=== PATIENT | female | born 1960 | race African-American/Black ===

== ENCOUNTER 2016-06-12 06:48 | Day surgery (SDC) | payer OTHER ==
[~2016-06-12 06:48] MED LIST: ASPI-482 PO; ATOR20TA PO; CART1TAB5 PO; CEFAZOLIN 1GM IVPB FOR OMNI 50 ML IV PRN; CETI10TA22 PO; LEVO75TA5 PO; LOSA25TA4 PO; MULT-208 PO; VITA100016 PO
[2016-06-12] MEDS ORDERED: MORPHINE SULFATE 2 MG/ML DISP.SYRIN. IV PRN (07:00)
[2016-06-12] MEDS ORDERED: ONDANSETRON PF 4 MG/2 ML VIAL. IV PRN (07:00)
[2016-06-12] MEDS ORDERED: FENTANYL PF 100 MCG/2 ML VIAL. IV PRN (07:00)
[2016-06-12] MEDS ORDERED: IV RINGERS,LACTATED 1000ML 1,000 ML IV SCH (07:00)
[2016-06-12] MEDS ORDERED: HYDROMORPHONE 2 MG/ML VIAL. IV PRN (07:00)
[2016-06-12] MEDS ORDERED: METHYLENE BLUE 1% 1 ML VIAL. ONE (07:00)
[2016-06-12] MEDS ORDERED: PROCHLORPERAZINE 10 MG/2 ML VIAL. IV PRN (07:00)
[2016-06-12] MEDS ORDERED: LIDOCAINE 1% 1 ML SYRINGE. ID PRN (07:00)
[2016-06-12 07:31] LABS: BASO # 0.1 x10^3/uL (0.0-0.2); BASO % 1 % (0-3); EOS % 2 % (0-3); HEMATOCRIT 40.8 % (36.0-47.0); HEMOGLOBIN 13.1 g/dL (12.0-15.5); LYMPH # 2.6 x10^3/uL (1.0-4.8); LYMPH % 37 % (24-48); MEAN CORPUSCULAR HEMOGLOBIN 26 pg (25-35); MEAN CORPUSCULAR HGB CONC 32 g/dL (31-37); MEAN CORPUSCULAR VOLUME 82 fL (79-100); MONO % 9 % (0-9); NEUT % 52 % (31-73); PLATELET COUNT 273 x10^3/uL (140-400); RED BLOOD COUNT 4.98 x10^6/uL (3.50-5.40); RED CELL DISTRIBUTION WIDTH 14.1 % (11.5-14.5)
[2016-06-12 07:37] LABS: INR 1.1 (0.8-1.1); PROTHROMBIN TIME PATIENT 13.3 SEC (11.7-14.0)
[2016-06-12 07:40] LABS: CALCIUM 9.4 mg/dL (8.5-10.1); GFR 69.1; POTASSIUM 3.7 mmol/L (3.5-5.1)
[2016-06-12 07:45] LABS: ALBUMIN 3.7 g/dL (3.4-5.0); ALBUMIN/GLOBULIN RATIO 0.8 (1.0-1.7); TOTAL BILIRUBIN 0.3 mg/dL (0.2-1.0); TOTAL PROTEIN 8.3 g/dL (6.4-8.2)
[2016-06-12] MEDS ORDERED: ONDANSETRON PF 4 MG/2 ML VIAL. ONE (08:26)
[2016-06-12] MEDS ORDERED: MIDAZOLAM HCL 2 MG/2 ML VIAL. ONE (08:26)
[2016-06-12] MEDS ORDERED: FENTANYL PF 100 MCG/2 ML VIAL. ONE (08:26)
[2016-06-12] MEDS ORDERED: PROPOFOL 20 ML IV ONE (08:26)
[2016-06-12] MEDS ORDERED: DESFLURANE 61 TO 120 MINUTES IH ONE (08:26)
[2016-06-12] MEDS ORDERED: LIDOCAINE 2% 100 MG/5 ML DISP.SYRIN. ONE (08:27)
[2016-06-12] MEDS ORDERED: DEXAMETHASONE SOD PHOS 20 MG/5 ML VIAL. ONE (08:27)
[2016-06-12] MEDS ORDERED: KETOROLAC 60 MG/2 ML SYRINGE FOR OR. ONE (08:27)
--- NOTE | 2016-06-12 08:35 | PDOC ---
SURGICAL PROGRESS NOTE Subjective Surgeon.......................................... Lexx Preoperative diagnosis......................Right breast masses Post operative diagnosis...................Right breast masses Anesthesia...................................... General Procedure....................................... Excision right breast masses via needle localization Blood loss....................................... 5cc's Drains............................................. None Fluids.............................................. See anesthesia's sheet Condition,........................................ Satisfactory Vital Signs Vital Signs Date Time Temp Pulse Resp B/P Pulse Ox O2 Delivery O2 Flow Rate FiO2 06/12/16 07:16 97.3 73 18 156/77 97 Room Air 97.3 Labs Laboratory Tests Test 06/12/16 07:20 White Blood Count 7.0x10^3/uL (4.0-11.0) Red Blood Count 4.98x10^6/uL (3.50-5.40) Hemoglobin 13.1g/dL (12.0-15.5) Hematocrit 40.8% (36.0-47.0) Mean Corpuscular Volume 82fL (79-100) Mean Corpuscular Hemoglobin 26pg (25-35) Mean Corpuscular Hemoglobin Concent 32g/dL (31-37) Red Cell Distribution Width 14.1% (11.5-14.5) Platelet Count 273x10^3/uL (140-400) Neutrophils (%) (Auto) 52% (31-73) Lymphocytes (%) (Auto) 37% (24-48) Monocytes (%) (Auto) 9% (0-9) Eosinophils (%) (Auto) 2% (0-3) Basophils (%) (Auto) 1% (0-3) Neutrophils # (Auto) 3.6x10^3uL (1.8-7.7) Lymphocytes # (Auto) 2.6x10^3/uL (1.0-4.8) Monocytes # (Auto) 0.6x10^3/uL (0.0-1.1) Eosinophils # (Auto) 0.1x10^3/uL (0.0-0.7) Basophils # (Auto) 0.1x10^3/uL (0.0-0.2) Prothrombin Time 13.3SEC (11.7-14.0) Prothromb Time International Ratio 1.1 (0.8-1.1) Activated Partial Thromboplast Time 27SEC (24-38) Sodium Level 144mmol/L (136-145) Potassium Level 3.7mmol/L (3.5-5.1) Chloride Level 107mmol/L (98-107) Carbon Dioxide Level 24mmol/L (21-32) Anion Gap 13 (6-14) Blood Urea Nitrogen 18mg/dL (7-20) Creatinine 1.0mg/dL (0.6-1.0) Estimated GFR (Cockcroft-Gault) 69.1 BUN/Creatinine Ratio 18 (6-20) Glucose Level 97mg/dL (70-99) Calcium Level 9.4mg/dL (8.5-10.1) Total Bilirubin 0.3mg/dL (0.2-1.0) Aspartate Amino Transf (AST/SGOT) 19U/L (15-37) Alanine Aminotransferase (ALT/SGPT) 28U/L (14-59) Alkaline Phosphatase 77U/L (46-116) Total Protein 8.3g/dL (6.4-8.2) Albumin 3.7g/dL (3.4-5.0) Albumin/Globulin Ratio 0.8 (1.0-1.7) Laboratory Tests Test 06/12/16 07:20 White Blood Count 7.0x10^3/uL (4.0-11.0) Red Blood Count 4.98x10^6/uL (3.50-5.40) Hemoglobin 13.1g/dL (12.0-15.5) Hematocrit 40.8% (36.0-47.0) Mean Corpuscular Volume 82fL (79-100) Mean Corpuscular Hemoglobin 26pg (25-35) Mean Corpuscular Hemoglobin Concent 32g/dL (31-37) Red Cell Distribution Width 14.1% (11.5-14.5) Platelet Count 273x10^3/uL (140-400) Neutrophils (%) (Auto) 52% (31-73) Lymphocytes (%) (Auto) 37% (24-48) Monocytes (%) (Auto) 9% (0-9) Eosinophils (%) (Auto) 2% (0-3) Basophils (%) (Auto) 1% (0-3) Neutrophils # (Auto) 3.6x10^3uL (1.8-7.7) Lymphocytes # (Auto) 2.6x10^3/uL (1.0-4.8) Monocytes # (Auto) 0.6x10^3/uL (0.0-1.1) Eosinophils # (Auto) 0.1x10^3/uL (0.0-0.7) Basophils # (Auto) 0.1x10^3/uL (0.0-0.2) Prothrombin Time 13.3SEC (11.7-14.0) Prothromb Time International Ratio 1.1 (0.8-1.1) Activated Partial Thromboplast Time 27SEC (24-38) Sodium Level 144mmol/L (136-145) Potassium Level 3.7mmol/L (3.5-5.1) Chloride Level 107mmol/L (98-107) Carbon Dioxide Level 24mmol/L (21-32) Anion Gap 13 (6-14) Blood Urea Nitrogen 18mg/dL (7-20) Creatinine 1.0mg/dL (0.6-1.0) Estimated GFR (Cockcroft-Gault) 69.1 BUN/Creatinine Ratio 18 (6-20) Glucose Level 97mg/dL (70-99) Calcium Level 9.4mg/dL (8.5-10.1) Total Bilirubin 0.3mg/dL (0.2-1.0) Aspartate Amino Transf (AST/SGOT) 19U/L (15-37) Alanine Aminotransferase (ALT/SGPT) 28U/L (14-59) Alkaline Phosphatase 77U/L (46-116) Total Protein 8.3g/dL (6.4-8.2) Albumin 3.7g/dL (3.4-5.0) Albumin/Globulin Ratio 0.8 (1.0-1.7) WAQAS SOMERS MD Jun 12, 2016 08:34
--- NOTE | 2016-06-12 09:02 | PDOC ---
SURGICAL PROGRESS NOTE Subjective no change to most recent History and Physical Vital Signs Vital Signs Date Time Temp Pulse Resp B/P Pulse Ox O2 Delivery O2 Flow Rate FiO2 06/12/16 07:16 97.3 73 18 156/77 97 Room Air 97.3 Labs Laboratory Tests Test 06/12/16 07:20 White Blood Count 7.0x10^3/uL (4.0-11.0) Red Blood Count 4.98x10^6/uL (3.50-5.40) Hemoglobin 13.1g/dL (12.0-15.5) Hematocrit 40.8% (36.0-47.0) Mean Corpuscular Volume 82fL (79-100) Mean Corpuscular Hemoglobin 26pg (25-35) Mean Corpuscular Hemoglobin Concent 32g/dL (31-37) Red Cell Distribution Width 14.1% (11.5-14.5) Platelet Count 273x10^3/uL (140-400) Neutrophils (%) (Auto) 52% (31-73) Lymphocytes (%) (Auto) 37% (24-48) Monocytes (%) (Auto) 9% (0-9) Eosinophils (%) (Auto) 2% (0-3) Basophils (%) (Auto) 1% (0-3) Neutrophils # (Auto) 3.6x10^3uL (1.8-7.7) Lymphocytes # (Auto) 2.6x10^3/uL (1.0-4.8) Monocytes # (Auto) 0.6x10^3/uL (0.0-1.1) Eosinophils # (Auto) 0.1x10^3/uL (0.0-0.7) Basophils # (Auto) 0.1x10^3/uL (0.0-0.2) Prothrombin Time 13.3SEC (11.7-14.0) Prothromb Time International Ratio 1.1 (0.8-1.1) Activated Partial Thromboplast Time 27SEC (24-38) Sodium Level 144mmol/L (136-145) Potassium Level 3.7mmol/L (3.5-5.1) Chloride Level 107mmol/L (98-107) Carbon Dioxide Level 24mmol/L (21-32) Anion Gap 13 (6-14) Blood Urea Nitrogen 18mg/dL (7-20) Creatinine 1.0mg/dL (0.6-1.0) Estimated GFR (Cockcroft-Gault) 69.1 BUN/Creatinine Ratio 18 (6-20) Glucose Level 97mg/dL (70-99) Calcium Level 9.4mg/dL (8.5-10.1) Total Bilirubin 0.3mg/dL (0.2-1.0) Aspartate Amino Transf (AST/SGOT) 19U/L (15-37) Alanine Aminotransferase (ALT/SGPT) 28U/L (14-59) Alkaline Phosphatase 77U/L (46-116) Total Protein 8.3g/dL (6.4-8.2) Albumin 3.7g/dL (3.4-5.0) Albumin/Globulin Ratio 0.8 (1.0-1.7) Laboratory Tests Test 06/12/16 07:20 White Blood Count 7.0x10^3/uL (4.0-11.0) Red Blood Count 4.98x10^6/uL (3.50-5.40) Hemoglobin 13.1g/dL (12.0-15.5) Hematocrit 40.8% (36.0-47.0) Mean Corpuscular Volume 82fL (79-100) Mean Corpuscular Hemoglobin 26pg (25-35) Mean Corpuscular Hemoglobin Concent 32g/dL (31-37) Red Cell Distribution Width 14.1% (11.5-14.5) Platelet Count 273x10^3/uL (140-400) Neutrophils (%) (Auto) 52% (31-73) Lymphocytes (%) (Auto) 37% (24-48) Monocytes (%) (Auto) 9% (0-9) Eosinophils (%) (Auto) 2% (0-3) Basophils (%) (Auto) 1% (0-3) Neutrophils # (Auto) 3.6x10^3uL (1.8-7.7) Lymphocytes # (Auto) 2.6x10^3/uL (1.0-4.8) Monocytes # (Auto) 0.6x10^3/uL (0.0-1.1) Eosinophils # (Auto) 0.1x10^3/uL (0.0-0.7) Basophils # (Auto) 0.1x10^3/uL (0.0-0.2) Prothrombin Time 13.3SEC (11.7-14.0) Prothromb Time International Ratio 1.1 (0.8-1.1) Activated Partial Thromboplast Time 27SEC (24-38) Sodium Level 144mmol/L (136-145) Potassium Level 3.7mmol/L (3.5-5.1) Chloride Level 107mmol/L (98-107) Carbon Dioxide Level 24mmol/L (21-32) Anion Gap 13 (6-14) Blood Urea Nitrogen 18mg/dL (7-20) Creatinine 1.0mg/dL (0.6-1.0) Estimated GFR (Cockcroft-Gault) 69.1 BUN/Creatinine Ratio 18 (6-20) Glucose Level 97mg/dL (70-99) Calcium Level 9.4mg/dL (8.5-10.1) Total Bilirubin 0.3mg/dL (0.2-1.0) Aspartate Amino Transf (AST/SGOT) 19U/L (15-37) Alanine Aminotransferase (ALT/SGPT) 28U/L (14-59) Alkaline Phosphatase 77U/L (46-116) Total Protein 8.3g/dL (6.4-8.2) Albumin 3.7g/dL (3.4-5.0) Albumin/Globulin Ratio 0.8 (1.0-1.7) WAQAS SOMERS MD Jun 12, 2016 09:02
--- NOTE | 2016-06-12 09:37 | HP ---
ADMIT DATE: 06/12/2016 HISTORY OF PRESENT ILLNESS: The patient reports a history of a lump in her right breast for the past month. It has been constant and is not tender and has not been associated with any swelling, redness or recent injury. The patient was seen for imaging at [facility] which showed multiple small densities at the 10 and 11 o'clock positions. PAST MEDICAL HISTORY: Hypertension, for which she takes medication on a regular basis and a history of hyperthyroidism, for which she had an iodine ablation treatment. MEDICATIONS: She takes Synthroid on a regular basis. ALLERGIES: This patient has allergies to SULFA medications. SOCIAL HISTORY: She does not drink, smoke or use recreational drugs. FAMILY HISTORY: Breast cancer in her 24-year-old sister who . PHYSICAL EXAMINATION: HEAD AND NECK: Grossly normal. HEART: Regular rate and rhythm. No murmurs auscultated. LUNGS: Clear to auscultation bilaterally. BREASTS: Right breast with a small density at the 6 o'clock position. ASSESSMENT AND PLAN: We discussed options of needle core biopsy with the patient. She declined that option at this time. The patient would like to undergo a lumpectomy procedure. The risks and complications of which were discussed with the patient. The patient is not currently on any anticoagulant medications at this time. WAQAS SOMERS MD DR: OSMIN/ally JOB#: [id number] / [id number]
[2016-06-12] MEDS ORDERED: VASOPRESSIN 20 UNIT/ML VIAL. ONE (09:49)
--- NOTE | 2016-06-12 10:25 | RAD ---
Right digital specimen mammogram, 06/12/2016: History: Suspicious cluster of nodules A single mammogram of a surgical specimen from the patient's right breast was obtained. The specimen contains both of the retention wires which were utilized in localizing the cluster of nodules. No discrete mass or nodule is identified. The nodules were not mammographically visible on the postlocalization images and therefore were not expected to be visible on the specimen study.
[2016-06-12] MEDS: FENTANYL PF 100 MCG/2 ML VIAL. IV PRN ×2 (11:14→11:26)
[2016-06-12 11:53] VITALS: BP 118/69
[2016-06-12] MEDS ORDERED: HYDROCODONE/APAP 5/325MG TABLET. PO PRN (12:15)
--- NOTE | 2016-06-12 18:32 | OP ---
DATE OF SURGERY: SURGEON: Felix Somers MD PREOPERATIVE DIAGNOSIS: Three tumors of the right breast. POSTOPERATIVE DIAGNOSIS: Three tumors of the right breast. ANESTHESIA: General. PROCEDURE: Excision of three tumors, right breast. TECHNIQUE: Under general anesthesia, the patient was properly prepped and draped in a routine fashion. She had needle localization and actually had 2 wires, one going through the subcutaneous superficial lesion and going down through the deep lesion. The other wire went through a different lesion which was close to, but not at the other wire. The wires were only probably less than an inch. The superficial lesion could not be removed as we did not want to dislodge things and as such all three were removed. The technique was under general anesthesia. As stated before, the patient was properly prepped and draped in routine fashion. We made an incision encompassing the insertion sites of both guidewires and about ____ inches in length and probably a inch or more in width. We carried these around the guidewires into the subcutaneous and then took all the tissue around both guidewires down. We used cautery, sharp dissection with Metzenbaum scissors, but mostly cautery and just went completely around both of the guidewires down to and include the methylene blue. I had spoken to the radiologist and the methylene blue was passed the lesion, so we knew we got the lesions. We took a wide ____ tissue, probably 2 inches or more in diameter around the wires. This was sent to x-ray and the radiologist did not think ____ to do sono or do mammogram on these tissues. As he thought the wires went through the lesions, the procedure was terminated. The deeper breast tissue was approximated with interrupted 3-0 Vicryl. The more superficial was closed with 4-0 Vicryl and the skin was closed using a subcuticular 5-0 Vicryl. The sterile dressing was applied and the procedure was terminated. The blood loss was probably less than 5 mL. No drains were used. Fluids given can be obtained from the anesthesia sheet. Condition of the patient is satisfactory as she has returned to the recovery room. FELIX SOMERS MD DR: OSMIN/ally JOB#: [id number] / [id number]
--- NOTE | 2016-06-13 16:48 | PATHOLOGY ---
PATHOLOGY REPORT * * * * * * * * FINAL DIAGNOSIS: Skin and breast tissue, right breast mass excision: - Fat necrosis, multifocal, with focal chronic inflammation. - Focal stromal fibrosis and mild duct ectasia. COMMENT: There is no evidence of malignancy. (JPM:; d/t: 06/13/16) REPORT ELECTRONICALLY SIGNED BY: Erik De Dios M.D. DATE/TIME: 06/13/2016 16:47 * * * * * * * * GROSS PATHOLOGY: The specimen is received in formalin labeled "Shanice Alcocer, right breast mass". Received is a 42 g unoriented lumpectomy specimen with attached light brown, wrinkled skin measuring 10.3 x 7.1 x 2.0 cm in greatest dimensions. There are two localization wires present which enter through the epidermal surface. The specimen is inked black. Sectioning reveals bright yellow, lobulated cut surfaces throughout with several areas of residual blue dye present. No grossly identifiable nodules or lesions are present. Alternating sections are submitted in cassettes A1 through A19. The cold ischemic time is 15 minutes. The total formalin fixation time is 9 hours and 23 minutes. (CAA; 06/12/2016) INITIAL CPT CODE(S): A; 04963 Professional services performed by [facility] [address] Technical services performed by [facility] at [address] [place] [address], [facility] [address] [address]. SPECIMEN(S) RECEIVED: A.Right breast mass CLINICAL HISTORY: Right breast mass PATIENT: SHANICE ALCOCER /AGE: 1104/01/1960 (Age: 56) PATIENT #: [id number] ALT CASE #: SPECIMEN COLLECTION DATE: 06/12/2016 SPECIMEN RECEIVED DATE: 06/12/2016 [facility] - [address] [place] [address] - PHONE: [phone] * * * END OF REPORT * * *
--- NOTE | 2016-07-01 09:17 | RAD ---
Ultrasound-guided right breast needle localization, 06/12/2016: History: Suspicious nodule An outside ultrasound study demonstrated a cluster of the least 3 suspicious hypoechoic nodules at the 10-11 o'clock location in the right breast. This cluster extends over an area of approximately 2 cm. We decided to place 2 localization wires to bracket this process. Under local anesthesia, aseptic conditions and sonographic guidance a a needle was placed in the most superior of these nodules via a lateral approach. This is also the most superficial of these nodules. A small amount methylene blue was injected just medial to the nodule as requested. A modified Kopans retention wire was then passed to the needle and the needle removed. We then targeted the more inferior/posterior of these nodules vis the same lateral approach. Methylene blue was again injected just medial to this nodule and a modified Kopans retention wire left in place extending through the nodule. Two view right mammograms were then obtained to document the position of the wires. The localized nodule cluster does not correspond to an area of increased density noted posterolaterally in the right breast on the outside mammograms. Mammographic follow-up is suggested. The results of this procedure were reviewed with Dr. Hallman at 9:00 AM on 2016. EDUARDO
== END 2016-06-12 12:43 | disposition home or self-care (01) ==
LOC: SURG 06:48
PROVIDERS: ATTEND Specialist
DX: D49.3 Neoplasm of unspecified behavior of breast (principal); I10 Essential (primary) hypertension; E78.5 Hyperlipidemia, unspecified; M19.90 Unspecified osteoarthritis, unspecified site; E78.00 Pure hypercholesterolemia, unspecified; G45.9 Transient cerebral ischemic attack, unspecified; E66.9 Obesity, unspecified; E03.9 Hypothyroidism, unspecified; F17.200 Nicotine dependence, unspecified, uncomplicated; Z80.3 Family history of malignant neoplasm of breast; Z90.710 Acquired absence of both cervix and uterus
CPT/HCPCS: 19125; 19126; 36415; 76098; 80053; 85027; 85610; 85730; 88305; G0206; J0690; J0780; J1100; J1885; J2250; J2405; J2704; J3010; J3490; J7120; Q9968; 77065